=== PATIENT | female | born 1980 | race Caucasian/White ===

== ENCOUNTER 2017-05-29 08:57 | Emergency (ER) | payer OTHER ==
[2017-05-29 09:03] VITALS: TEMP 97.9
[2017-05-29] MEDS ORDERED: diphenhydrAMINE 50 MG CAP PO STA (09:12)
[2017-05-29] MEDS ORDERED: FAMOTIDINE 20 MG/2 ML VIAL IV STA (09:12)
[2017-05-29] MEDS ORDERED: methylPREDNISolone SOD SUCCI 125 MG/2 ML VIAL IV STA (09:12)
[2017-05-29] MEDS ORDERED: EPINEPHrine 1 MG/ML 1 ML AMP SQ ONE (09:13)
--- NOTE | 2017-05-29 10:00 | ED ---
Allergic Reaction HPI - General Chief complaint: Allergic Reaction Stated complaint: Allergic Reaction (macrobid) Time Seen by Provider: 05/29/17 09:05 Source: patient, RN notes reviewed, old records reviewed Mode of arrival: ambulatory Limitations: no limitations - History of Present Illness Initial Comments: 36-year-old female presents emergency Department chief complaint of ALLERGIC reaction. Patient was started on Macrobid for UTI and finished a course last week. She was seen at a hospital [facility] on vacation after she developed hives and shortness of breath. Patient on Sunday was started on prednisone and Benadryl and Pepcid. Patient reports that she woke up today and was having worsening hives. She had not had any Benadryl or medications since yesterday evening. Patient felt that she is feeling somewhat tight in her throat. Patient denies any specific shortness of breath. Patient states that this is the first time she's never had an ALLERGIC reaction such as this. - Related Data Home Medications Medication Instructions Recorded Confirmed ALPRAZolam [Xanax] 0.25 mg PO DAILY PRN 07/20/16 05/29/17 PARoxetine [Paxil] 20 mg PO DAILY 07/20/16 05/29/17 Etonogestrel/Ethinyl Estradiol 1 ring VG Q30D 05/29/17 05/29/17 [Nuvaring Vaginal Ring] Famotidine [Pepcid] 20 mg PO BID 05/29/17 05/29/17 Loratadine [Claritin] 10 mg PO DAILY 05/29/17 05/29/17 diphenhydrAMINE HCL [Benadryl] 25 mg PO HS PRN 05/29/17 05/29/17 predniSONE 50 mg PO DAILY 05/29/17 05/29/17 Previous Rx's Medication Instructions Recorded EPINEPHrine (Auto Inject) [Epipen] 0.3 mg IM ONCE PRN #1 syringe 05/29/17 Famotidine [Pepcid] 20 mg PO BID #8 tablet 05/29/17 diphenhydrAMINE [Benadryl] 25 mg PO QID PRN #25 capsule 05/29/17 predniSONE 50 mg PO DAILY #4 tablet 05/29/17 Allergies Allergy/AdvReac Type Severity Reaction Status Date / Time nitrofurantoin Allergy Rash/Hives Verified 05/29/17 09:56 [From Macrobid] Penicillins Allergy Unknown Verified 05/29/17 09:56 Childhood sulfamethoxazole Allergy Unknown Verified 05/29/17 09:56 [From Bactrim] trimethoprim [From Bactrim] Allergy Unknown Verified 05/29/17 09:56 Review of Systems ROS Statement: Those systems with pertinent positive or pertinent negative responses have been documented in the HPI. ROS Other: All systems not noted in ROS Statement are negative. Past Medical History Past Medical History: No Reported History Additional Past Medical History / Comment(s): migraines, anxiety depression History of Any Multi-Drug Resistant Organisms: None Reported Past Surgical History: No Surgical Hx Reported Past Psychological History: Anxiety, Depression Smoking Status: Never smoker Past Alcohol Use History: None Reported Past Drug Use History: None Reported General Exam - General Exam Comments Initial Comments: His is a 36-year-old female. Patient does not appear to be in any acute distress. Limitations: no limitations General appearance: alert, in no apparent distress Head exam: Present: atraumatic, normocephalic, normal inspection Eye exam: Present: normal appearance, PERRL, EOMI. Absent: scleral icterus, conjunctival injection, periorbital swelling ENT exam: Present: normal exam, mucous membranes moist Neck exam: Present: normal inspection. Absent: tenderness, meningismus, lymphadenopathy Respiratory exam: Present: normal lung sounds bilaterally. Absent: respiratory distress, wheezes, rales, rhonchi, stridor Cardiovascular Exam: Present: regular rate, normal rhythm, normal heart sounds. Absent: systolic murmur, diastolic murmur, rubs, gallop, clicks GI/Abdominal exam: Present: soft, normal bowel sounds. Absent: distended, tenderness, guarding, rebound, rigid Extremities exam: Present: normal inspection, full ROM, normal capillary refill. Absent: tenderness, pedal edema, joint swelling, calf tenderness Back exam: Present: normal inspection, full ROM Neurological exam: Present: alert, oriented X3, CN II-XII intact Psychiatric exam: Present: normal affect, normal mood Skin exam: Present: warm, dry, intact, normal color, urticaria ( is covered from her chest, abdomen and back with hives.). Absent: rash Course Vital Signs 05/29/17 09:00 Temperature 97.9 F Pulse Rate 59 L Respiratory 18 Rate Blood Pressure 136/78 O2 Sat by Pulse 96 Oximetry - Reevaluation(s) Reevaluation #1: 05/29/17 10:30 Patient was reevaluated and her hives have improved. She is feeling much better at this time. Discussed that she needs to take Benadryl every 4-6 hours. Patient has not been doing this. Medical Decision Making - Medical Decision Making Is a 28-year-old female chief complaint of ALLERGIC reaction to Macrobid. She was treated at a hospital [facility] on vacation on Sunday for similar symptoms. She was discharged with prednisone 50 mg, and Pepcid. Patient arrives today she hasn't taken her medication since last night with worsening hives. She states she felt tight in her throat. Patient was given IV site [place], Pepcid and Benadryl and 0.1 epinephrine subcu. Patient was reevaluated and is feeling somewhat better. Discussed that I will continue her prednisone, and Pepcid. Also informed patient she needs to be taking Benadryl every 4-6 hours. Discussed that she should never have Macrobid again that she will have a worsening reaction next time. Patient also will be discharged with a further prescription of prednisone for a longer course, and Pepcid. Patient understands treatment plan will comply. Return parameters were discussed. Disposition Clinical Impression: Allergic reaction, Adverse reaction to drug Disposition: HOME SELF-CARE Condition: Stable Instructions: Anaphylaxis (ED) Additional Instructions: Patient is follow-up with her primary care provider. Continue to take Benadryl every 4-6 hours as well as continue the prescription she or he has an at the new prescriptions afterwards. Patient should return to the emergency department if any alarming signs or symptoms occur. Prescriptions: diphenhydrAMINE [Benadryl] 25 mg PO QID PRN #25 capsule PRN Reason: Itching EPINEPHrine (Auto Inject) [Epipen] 0.3 mg IM ONCE PRN #1 syringe PRN Reason: Anaphylaxis Famotidine [Pepcid] 20 mg PO BID #8 tablet predniSONE 50 mg PO DAILY #4 tablet Referrals: López Mckay MD [Primary Care Provider] - 1-2 days Time of Disposition: 10:31
[2017-05-29 10:52] VITALS: BP 131/70; PULSE 84; RESP 16
== END 2017-05-29 10:51 | disposition home or self-care (01) ==
LOC: EC 08:57
DX: L50.9 Urticaria, unspecified (principal); T37.8X5A Adverse effect of other specified systemic anti-infectives and antiparasitics, initial encounter; F32.9 Major depressive disorder, single episode, unspecified; F41.9 Anxiety disorder, unspecified; Z79.3 Long term (current) use of hormonal contraceptives; Z79.52 Long term (current) use of systemic steroids; Z88.1 Allergy status to other antibiotic agents; Z88.0 Allergy status to penicillin; Z88.2 Allergy status to sulfonamides; Z79.899 Other long term (current) drug therapy
CPT/HCPCS: 99283; 96374; 96375; 96372; J0171; J2930

== ENCOUNTER → 2019-09-11 | Outpatient (CLI) | payer OTHER ==
--- NOTE | 2019-09-11 09:49 | MM ---
Reason for exam: screening (asymptomatic). Baseline mammogram. History: Took hormonal contraceptives beginning at age 15. Physical Findings: A clinical breast exam by your physician is recommended on an annual basis and results should be correlated with mammographic findings. MG Screening Mammo w CAD Bilateral CC and MLO view(s) were taken. The breast tissue is heterogeneously dense. This may lower the sensitivity of mammography. No suspicious abnormality. These results were verbally communicated with the patient and result sheet given to the patient on 09/11/19. ASSESSMENT: Negative, BI-RAD 1 RECOMMENDATION: Routine screening mammogram of both breasts in 1 year.
== END ==
LOC: RADMAMWWP 07:35
PROVIDERS: ATTEND Obstetrics & Gynecology
DX: Z12.31 Encounter for screening mammogram for malignant neoplasm of breast (principal)
CPT/HCPCS: 77067

== ENCOUNTER → 2020-11-15 | Outpatient (CLI) | payer BC ==
--- NOTE | 2020-11-16 11:15 | MM ---
Reason for exam: screening (asymptomatic). Last mammogram was performed 1 year and 2 months ago. History: Took hormonal contraceptives beginning at age 15. Physical Findings: A clinical breast exam by your physician is recommended on an annual basis and results should be correlated with mammographic findings. MG Screening Mammo w CAD Bilateral CC and MLO view(s) were taken. Prior study comparison: September 11, 2019, bilateral MG screening mammo w CAD. The breast tissue is heterogeneously dense. This may lower the sensitivity of mammography. There is no discrete abnormality. ASSESSMENT: Negative, BI-RAD 1 RECOMMENDATION: Routine screening mammogram of both breasts in 1 year.
== END | disposition home or self-care (01) ==
LOC: RADMAMWWP 07:44
PROVIDERS: ATTEND Obstetrics & Gynecology
DX: Z12.31 Encounter for screening mammogram for malignant neoplasm of breast (principal)
CPT/HCPCS: 77067

== ENCOUNTER → 2021-08-01 | Outpatient (CLI) | payer BC ==
--- NOTE | 2021-08-02 05:05 | CT ---
EXAMINATION TYPE: CT kidney stone wo con DATE OF EXAM: 08/01/2021 COMPARISON: 07/20/2016 HISTORY: 40-year-old female R31.6, Hematuria, abdominal pain. Hx renal stones TECHNIQUE: Contiguous axial scanning of the abdomen and pelvis without IV contrast. Coronal and sagit merline reconstructions performed. CT DLP: 290.10 mGycm Automated exposure control for dose reduction was used. FINDINGS: Heart normal size without pericardial effusion. Lung bases clear without pleural effusion. Liver is borderline enlarged at 17.5 cm. Suggestion of some focal fat along the anterior falciform ligament. However, a larger slightly hypodense lesion at the posterior right hepatic dome is noted measuring 4. 9 cm versus 3.5 cm, previously. A second lesion at the mid hepatic dome measures 2.8 cm and is not well seen previously. A third lesion within the caudate measures 2.1 cm estimated to measure 1.3 cm, previously. A fourth lesion at the inferior segment 6 right liver lobe measures 3.9 cm versus 3.8 cm, previously. Relative stability suggests a benign etiology for this lesion. Noncontrast appearance of the gallbladder, adrenal glands, spleen with a couple hilar splenules, and pancreas show no gross abnormality. There is a 5 mm calculus at the left UPJ with mild hydronephrosis. Additional 5 mm nonobstructive left lower pole renal calculus. No hydronephrosis on the right. No dilated small bowel, free fluid, or free air. No mesenteric or retroperitoneal lymphadenopathy. Normal appendix. Mild stool burden. No pericolonic inflammatory change. Bladder is collapsed. Platelets in the pelvis. Uterus is anteverted. Both ovaries are visualized. No abnormal fluid collection in the pelvis or pelvic lymphadenopathy. Bones: Moderate to advanced degenerative disc disease L5-S1 with a leftward disc osteophyte complex t hat appears to cause at least moderate left L5-S1 neuroforaminal stenosis. IMPRESSION: 1. A 5 MM LEFT UPJ CALCULUS WITH MILD OBSTRUCTIVE UROPATHY. 2. AN ADDITIONAL NONOBSTRUCTIVE 5 MM LEFT RENAL CALCULUS. 3. APPROXIMATELY 4 LIVER LESIONS MEASURING UP TO 4.9 CM WHICH WARRANT FURTHER EVALUATION. 3 of these APPEAR NEW OR LARGER. BENIGN ETIOLOGIES ARE INCLUDED IN THE DIFFERENTIAL SUCH HEMANGIOMAS, FNH, A ND FOCAL FAT. OTHER ETIOLOGY NOT EXCLUDED AT THIS TIME. LIVER MRI CAN PROVIDE MORE DETAILED CHARACTER IZATION.
== END | disposition home or self-care (01) ==
LOC: RADCTMAIN 15:51
PROVIDERS: ATTEND Family Medicine
DX: N13.9 Obstructive and reflux uropathy, unspecified (principal); N20.2 Calculus of kidney with calculus of ureter
CPT/HCPCS: 74176

== ENCOUNTER → 2021-09-09 | Outpatient (CLI) | payer BC ==
--- NOTE | 2021-09-11 04:26 | MR ---
EXAMINATION TYPE: MR liver wo/w con DATE OF EXAM: 09/09/2021 COMPARISON: CT scan 08/01/2021 HISTORY: Abnormal findings on CT, evaluate lesions. CONTRAST: Standard multiplanar, multisequence MRI departmental protocol images were obtained without contrast a nd with 7 mL intravenous Gadavist gadolinium contrast. On the T2 images there is lobulated 4 cm high signal lesion in the inferior right lobe of the liver. There is a similar 2.5 cm lesion anterior to the inferior vena cava and the caudate lobe of the liver . There is lobulated 5 cm there is high signal lesion in the posterior superior right lobe of the shannon er. These multiple liver masses show progressive enhancement on the delayed contrast images and consi stent with hemangiomas. Spleen is intact. There is no evidence of pancreatic mass. Pancreatic duct appears normal. The bile d ucts are not dilated. Gallbladder appears normal. There is left side hydronephrosis.. No evidence of a solid renal mass. The proximal left ureter is di lated. There is no ascites. There is no retroperitoneal adenopathy. There is no evidence of pleural effusion . IMPRESSION: There is multiple liver lesions which have signal pattern consistent with ordinary hemangiomas and no t changed in size compared to CT scan of 08/01/2021. Left-sided hydronephrosis and proximal hydroureter. This appears similar to old exam. There is likely a stone in the mid left ureter that has migrated from the proximal ureter compared to old exam.
== END | disposition home or self-care (01) ==
LOC: RADMRIMAIN 14:47
PROVIDERS: ATTEND Family Medicine
DX: R93.2 Abnormal findings on diagnostic imaging of liver and biliary tract (principal)
CPT/HCPCS: 74183; A9585

== ENCOUNTER → 2021-10-07 | Outpatient (CLI) | payer BC ==
--- NOTE | 2021-10-07 09:24 | XR ---
EXAMINATION TYPE: XR KUB DATE OF EXAM: 10/07/2021 HISTORY: Pain Comparison: 07/24/2016 Single KUB is submitted for interpretation. Findings: Right renal calculi: None Visualized. Obscured by overlying bowel content. Right ureteral calculi: None Visualized. Left renal calculi: 5.4 mm lower pole calculus. Mid and upper pole of the left kidney obscured by ov erlying bowel content. Left ureteral calculi: None Visualized. Pelvic calcifications: Pelvic calcifications noted. These likely reflect phleboliths however distal ureteral calculus is difficult to exclude. Bowel gas pattern is unremarkable. No free air. No mass effects. IMPRESSION: 1. As above
== END | disposition home or self-care (01) ==
LOC: RADXRMAIN 09:07
PROVIDERS: ATTEND Urology
DX: N20.1 Calculus of ureter (principal)
CPT/HCPCS: 74018

== ENCOUNTER → 2022-02-15 | Outpatient (CLI) | payer BC ==
--- NOTE | 2022-02-17 11:49 | MM ---
Reason for exam: screening (asymptomatic). Last mammogram was performed 1 year and 3 months ago. History: Took hormonal contraceptives beginning at age 15. Taking progesterone for 2 years. Physical Findings: A clinical breast exam by your physician is recommended on an annual basis and results should be correlated with mammographic findings. MG Screening Mammo w CAD Bilateral CC and MLO view(s) were taken. Prior study comparison: November 15, 2020, bilateral MG screening mammo w CAD. September 11, 2019, bilateral MG screening mammo w CAD. The breast tissue is heterogeneously dense. This may lower the sensitivity of mammography. No significant changes when compared with prior studies. ASSESSMENT: Benign, BI-RAD 2 RECOMMENDATION: Routine screening mammogram of both breasts in 1 year. Patient should continue monthly self breast exams. A negative report should not preclude additional follow up of suspicious palpable abnormalities.
== END | disposition home or self-care (01) ==
LOC: RADMAMWWP 16:30
PROVIDERS: ATTEND Family Medicine
DX: Z12.31 Encounter for screening mammogram for malignant neoplasm of breast (principal)
CPT/HCPCS: 77067

== ENCOUNTER → 2023-03-06 | Outpatient (CLI) | payer OTHER ==
--- NOTE | 2023-03-07 10:29 | MM ---
Reason for Exam: Screening (asymptomatic). Last screening mammogram was performed 12 month(s) ago. Patient History: Menarche at age 10. Currently using Progesterone, for 2 years. Hormonal Contraceptives, from age 15 until age 37. Risk Values: Lyubov 5 year model risk: 0.6%. NCI Lifetime model risk: 7.1%. Prior Study Comparison: 09/11/2019 Bilateral Screening Mammogram, [facility]. 11/15/2020 Bilateral Screening Mammogram, [facility]. 02/15/2022 Bilateral Screening Mammogram, [facility]. Tissue Density: The breast tissue is heterogeneously dense. This may lower the sensitivity of mammography. Findings: Analyzed By CAD. There is no suspicious group of microcalcifications or new suspicious mass in either breast. Overall Assessment: Negative, BI-RAD 1 Management: Screening Mammogram of both breasts in 1 year. . Patient should continue monthly self-breast exams. A clinical breast exam by your physician is recommended on an annual basis. This exam should not preclude additional follow-up of suspicious palpable abnormalities. Note on Lyubov scores and lifetime risk: 1. A Lyubov score greater than 3% is considered moderate risk. If this is the case, consider specialist referral to assess eligibility for a risk reducing agent. 2. If overall lifetime risk for the development of breast cancer is 20% or higher, the patient may qualify for future screening with alternating mammogram and breast MRI. Electronically signed and approved by: Michael Rueda M.D.
== END | disposition home or self-care (01) ==
LOC: RADMAMWWP 08:28
PROVIDERS: ATTEND Obstetrics & Gynecology
DX: Z12.31 Encounter for screening mammogram for malignant neoplasm of breast (principal)
CPT/HCPCS: 77067

== ENCOUNTER → 2023-05-24 | Outpatient (CLI) | payer OTHER ==
--- NOTE | 2023-05-25 08:15 | XR ---
EXAMINATION TYPE: XR KUB DATE OF EXAM: 05/24/2023 COMPARISON: 10/07/2021 HISTORY: Left kidney stone TECHNIQUE: One view abdominal series FINDINGS: The osseous structures are intact. The bowel gas pattern is nonspecific. Right kidney: Secured by bowel content with no obvious calcification. Left kidney: Stable mid to uppe r pole 6 mm calculus. Calcifications in the pelvis compatible with phleboliths stable. Bilateral hip arthropathy.. IMPRESSION: 1. Stable left-sided nephrolithiasis.
== END | disposition home or self-care (01) ==
LOC: RADXRWHC 16:11
PROVIDERS: ATTEND Urology
DX: N20.0 Calculus of kidney (principal)
CPT/HCPCS: 74018

== ENCOUNTER 2023-05-28 08:31 | Day surgery (SDC) | payer OTHER ==
[2023-05-25 08:47] VITALS: BMI 24.3
--- NOTE | 2023-05-28 07:04 | P.GSHP ---
History of Present Illness H&P Date: 05/28/23 Chief Complaint: Flank and abdominal pain The patient is a 42-year-old white female with a history of urolithiasis. She underwent ESWL in 2015. Her calculus fragmented well at that time. She now presents with abdominal and flank pain which is predominantly left-sided. CT scan and KUB x-rays show a 6 mm left lower pole renal calculus, with a measured density of 651 Hounsfield units. She was offered the options of observation, ureteroscopy with laser lithotripsy, and extracorporal shockwave lithotripsy (ESWL). She has chosen to undergo the latter and comes for this reason. - Constitutional Constitutional: Denies chills, Denies fever - Gastrointestinal Gastrointestinal: Reports abdominal pain, Reports nausea, Reports vomiting - Genitourinary (Female) Genitourinary: Reports flank pain, Reports kidney stones, Denies hematuria Past Medical History Past Medical History: No Reported History (6) Additional Past Medical History / Comment(s): past migraines, kidney stones, constipation/diarrhea History of Any Multi-Drug Resistant Organisms: None Reported Past Surgical History: No Surgical Hx Reported Additional Past Surgical History / Comment(s): lithotripsy 2016 Past Anesthesia/Blood Transfusion Reactions: No Reported Reaction, Motion Sickness Past Psychological History: Anxiety, Depression Smoking Status: Former smoker Past Alcohol Use History: Rare Additional Past Alcohol Use History / Comment(s): quit smoking april 2022, hx of 5 cigarettes/day. Past Drug Use History: None Reported - Past Family History Father Family Medical History: Cancer Additional Family Medical History / Comment(s): colon cancer with mets to liver Medications and Allergies Home Medications Medication Instructions Recorded Confirmed Type PARoxetine [Paxil] 20 mg PO DAILY 07/20/16 05/25/23 History Dicyclomine [Bentyl] 20 mg PO QID #15 tablet 05/22/23 05/25/23 Rx ALPRAZolam [Xanax] 0.5 mg PO DAILY PRN 05/25/23 05/25/23 History Citalopram Hydrobromide [CeleXA] 20 mg PO HS 05/25/23 05/25/23 History Ibuprofen [Motrin Ib] 400 mg PO Q8H PRN 05/25/23 05/25/23 History Progesterone, Micronized 200 mg PO DIRECTED 05/25/23 05/25/23 History [Progesterone] Allergies Allergy/AdvReac Type Severity Reaction Status Date / Time nitrofurantoin Allergy Rash/Hives Verified 05/25/23 08:33 [From Macrobid] Penicillins Allergy Unknown Verified 05/25/23 08:33 Childhood sulfamethoxazole Allergy Rash/Hives Verified 05/25/23 08:33 [From Bactrim] trimethoprim [From Bactrim] Allergy Rash/Hives Verified 05/25/23 08:33 Surgical - Exam - General well developed, well nourished, no distress - Respiratory normal respiratory effort - Abdomen Abdomen: soft, non tender, no guarding, no rigid, no rebound - Psychiatric oriented to time, oriented to person, oriented to place, speech is normal, memory intact Results - Imaging Abdominal x-ray: report reviewed, image reviewed CT scan - abdomen: report reviewed, image reviewed Assessment and Plan (1) Calculus of kidney Status: Acute Code(s): N20.0 - CALCULUS OF KIDNEY SNOMED Code(s): 21890958 Plan: I discussed with the patient the treatment of the calculus with ESWL. I explained the possible need for repeat ESWL or alternative treatment in the event of treatment failure or incomplete fragmentation. I discussed the risks of ESWL, including anesthesia, collateral damage to other organs, and Steinstrasse. The possible need for a secondary intervention such as a stent or ureteroscopy was discussed. The patient expressed an understanding of the procedure and risks including but not limited to hematuria secondary to renal contusion, perinephric hematoma, and injury to adjacent organs such as the spleen. The patient understands that due to the constraints of the lithotriptor schedule that it will be Dr. De La Cruz who will perform the procedure.
[~2023-05-28 08:31] MED LIST: DEXAMETHASONE SOD PHOSPHATE 4 MG/ML 1 ML VIAL IV ONE; HYDROmorphone 0.5 MG/0.5 ML SYRINGE IVP PRN; LACTATED RINGERS 1,000 ML IV SCH; LIDOCAINE 1% (10MG/ML) FOR IV START INTRADERMA PRN; MIDAZOLAM 2 MG/2 ML VIAL IV PRN; ONDANSETRON 4 MG/2 ML VIAL IVP ONE
[2023-05-28] MEDS ORDERED: SCOPOLAMINE 1 MG/72 HR PATCH TRANSDERM ONE (09:00)
[2023-05-28 09:15] VITALS: TEMP 97.8
[2023-05-28] MEDS ORDERED: KETAMINE 10 MG/ML 20 ML VIAL ONE (09:23)
[2023-05-28] MEDS ORDERED: PROPOFOL 10 MG/ML 20 ML VIAL IV ONE (09:23)
[2023-05-28] MEDS ORDERED: MIDAZOLAM 2 MG/2 ML VIAL ONE (09:23)
[2023-05-28] MEDS ORDERED: fentaNYL (PF) 50 MCG/ML 2 ML AMP ONE (09:23)
--- NOTE | 2023-05-28 09:59 | P.OP ---
Date of Procedure: 05/28/23 Preoperative Diagnosis: Renal stone Postoperative Diagnosis: same Procedure(s) Performed: Left ESWL Implants: none Anesthesia: MAC Surgeon: Ivan De La Cruz Pathology: none sent Condition: stable Disposition: PACU Indications for Procedure: The patient is a 42-year-old white female with a history of urolithiasis. She underwent ESWL in 2016. Her calculus fragmented well at that time. She now presents with abdominal and flank pain which is predominantly left-sided. CT scan and KUB x-rays show a 6 mm left lower pole renal calculus, with a measured density of 651 Hounsfield units. She was offered the options of observation, ureteroscopy with laser lithotripsy, and extracorporal shockwave lithotripsy (ESWL). She has chosen to undergo the latter and comes for this reason. Description of Procedure: The patient was taken to the operating room and placed on the Dornier Compact Delta II lithotripter in the supine position. left upper pole stone was seen on the biplanar fluoroscopy. Once the patient was properly positioned and sedat ed, lithotripsy was performed. The energy level was gradually increased per protocol, to an energy level of 4. A total of 2500 shocks were given at a rate of 80 shocks per minute. Fluoroscopy was utilized at a minimum to ensure proper positioning and determine the treatment status. There was excellent fragmentation of the stone The patient tolerated the procedure well was taken to the recovery room in stable condition. Instructions were given to strain the urine, and the patient will follow-up within one week.
[2023-05-28 10:10] VITALS: RESP 16
[2023-05-28 10:25] VITALS: BP 108/73; PULSE 54
== END 2023-05-28 11:20 | disposition home or self-care (01) ==
LOC: ORWHC2ENDO 08:31
PROVIDERS: ATTEND Urology
DX: N20.0 Calculus of kidney (principal); F41.9 Anxiety disorder, unspecified; F32.A Depression, unspecified; F10.90 Alcohol use, unspecified, uncomplicated; Z87.891 Personal history of nicotine dependence; Z79.899 Other long term (current) drug therapy; Z88.1 Allergy status to other antibiotic agents; Z88.0 Allergy status to penicillin; Z88.2 Allergy status to sulfonamides; Z87.442 Personal history of urinary calculi
CPT/HCPCS: 81025; 50590; J2250; J1100; J2405; J3010; J2704

== ENCOUNTER → 2023-06-06 | Outpatient (CLI) | payer OTHER ==
--- NOTE | 2023-06-06 12:32 | XR ---
EXAMINATION TYPE: XR KUB DATE OF EXAM: 06/06/2023 COMPARISON: 05/24/2023 HISTORY: Left renal stone TECHNIQUE: One view abdominal series FINDINGS: The osseous structures are intact. The bowel gas pattern is nonspecific. Left kidney: There remains a faint calcification overlying the lower pole the left kidney measuring a pproximately 4 to 5 mm. Right kidney: No suspicious calcifications In the pelvis there are multiple calcifications stable and likely related to phleboliths. IMPRESSION: 1. Stable 4 to 5 mm left renal calculus.
== END | disposition home or self-care (01) ==
LOC: RADXRMAIN 11:58
PROVIDERS: ATTEND Urology
DX: N20.0 Calculus of kidney (principal)
CPT/HCPCS: 74018

== ENCOUNTER → 2024-03-24 | Outpatient (CLI) | payer BC ==
--- NOTE | 2024-03-26 10:04 | MM ---
Reason for Exam: Screening (asymptomatic). Last mammogram was performed 1 year(s) and 1 month(s) ago. Patient History: Menarche at age 10. Patient has no children. Currently using Progesterone, for 2 years. Hormonal Contraceptives, from age 15 until age 37. Last menstrual period: 03/09/2024 Risk Values: Lyubov 5 year model risk: 0.9%. NCI Lifetime model risk: 10.6%. Prior Study Comparison: 11/15/2020 Bilateral Screening Mammogram, [facility]. 02/15/2022 Bilateral Screening Mammogram, [facility]. 03/06/2023 Bilateral MG screening mammo w CAD, [facility]. Tissue Density: The breasts are heterogeneously dense, which may obscure small masses. Findings: Analyzed By CAD. Focal asymmetric density lower inner right breast 4.5 cm from the nipple. Additional views are recommended. No suspicious calcifications seen within either breast. Overall Assessment: Incomplete: need additional imaging evaluation, BI-RAD 0 Management: Diagnostic Mammogram of the right breast. . Patient should continue monthly self-breast exams. A clinical breast exam by your physician is recommended on an annual basis. This exam should not preclude additional follow-up of suspicious palpable abnormalities. Note on Lyubov scores and lifetime risk: 1. A Lyubov score greater than 3% is considered moderate risk. If this is the case, consider specialist referral to assess eligibility for a risk reducing agent. 2. If overall lifetime risk for the development of breast cancer is 20% or higher, the patient may qualify for future screening with alternating mammogram and breast MRI. Electronically signed and approved by: Edi Dorantes M.D. Radiologis
== END | disposition home or self-care (01) ==
LOC: RADMAMWWP 15:53
PROVIDERS: ATTEND Obstetrics & Gynecology
DX: Z12.31 Encounter for screening mammogram for malignant neoplasm of breast (principal)
CPT/HCPCS: 77067

== ENCOUNTER → 2024-03-28 | Outpatient (CLI) | payer BC ==
--- NOTE | 2024-03-28 10:53 | MM ---
Reason for Exam: Additional evaluation requested from abnormal screening. Last screening mammogram was performed less than 1 month ago. Patient History: Menarche at age 10. Patient has no children. Currently using Progesterone, for 2 years. Hormonal Contraceptives, from age 15 until age 37. Risk Values: Lyubov 5 year model risk: 0.9%. NCI Lifetime model risk: 10.6%. Prior Study Comparison: 09/11/2019 Bilateral Screening Mammogram, [facility]. 11/15/2020 Bilateral Screening Mammogram, [facility]. 02/15/2022 Bilateral Screening Mammogram, [facility]. 03/06/2023 Bilateral MG screening mammo w CAD, [facility]. 03/24/2024 Bilateral MG screening mammo w CAD, [facility]. Tissue Density: Right: The breasts are extremely dense, which lowers the sensitivity of mammography. Findings: Analyzed By CAD. Pattern appears stable. Under compression no persistent suspicious focal asymmetry in the lower inner right breast is identified. Precautionary 6 month follow-up is recommended. No suspicious groups of microcalcifications, spiculated or lobular masses, architectural distortion or other secondary signs of malignancy are mammographically apparent. Overall Assessment: Probably benign, BI-RAD 3 Management: Diagnostic Mammogram of the right breast in 6 months. A negative mammogram report should not preclude additional follow up of suspicious palpable abnormalities. Patient should continue monthly self breast exam. A clinical breast exam by your physician is recommended on an annual basis and results should be correlated with mammographic findings. Note on Lyubov scores and lifetime risk: 1. A Lyubov score greater than 3% is considered moderate risk. If this is the case, consider specialist referral to assess eligibility for a risk reducing agent. 2. If overall lifetime risk for the development of breast cancer is 20% or higher, the patient may qualify for future screening with alternating mammogram and breast MRI. Electronically signed and approved by: Steven Jean Baptiste D.O. Radiologis
== END | disposition home or self-care (01) ==
LOC: RADMAMWWP 10:27
PROVIDERS: ATTEND Obstetrics & Gynecology
DX: R92.341 Mammographic extreme density, right breast (principal); R92.8 Other abnormal and inconclusive findings on diagnostic imaging of breast
CPT/HCPCS: 77061; 77065

== ENCOUNTER 2024-05-16 10:00 | Day surgery (SDC) | payer BC ==
[~2024-05-16 10:00] MED LIST changes: -DEXAMETHASONE SOD PHOSPHATE 4 MG/ML 1 ML VIAL IV ONE; -HYDROmorphone 0.5 MG/0.5 ML SYRINGE IVP PRN; +LACTATED RINGERS 1,000 ML BAG ONE; -LACTATED RINGERS 1,000 ML IV SCH; -LIDOCAINE 1% (10MG/ML) FOR IV START INTRADERMA PRN; -MIDAZOLAM 2 MG/2 ML VIAL IV PRN; -ONDANSETRON 4 MG/2 ML VIAL IVP ONE
[2024-05-16] MEDS ORDERED: GLYCOPYRROLATE 0.2 MG/ML 2 ML VIAL ONE (10:02)
[2024-05-16] MEDS ORDERED: PROPOFOL 10 MG/ML 20 ML VIAL IV ONE (10:02)
[2024-05-16] MEDS ORDERED: LIDOCAINE 1% INJ 10MG/ML (20 ML MDV) ONE (10:02)
--- NOTE | 2024-06-06 17:15 | P.PCN ---
Date of Procedure: 05/16/24 Procedure(s) Performed: This an addendum to the procedure was performed on 05/16/2024. Procedure performed colonoscopy Procedure: Scope was advanced into the cecum. Careful examination was performed. Colonoscopy was within normal limits. Small internal hemorrhoids seen.
== END 2024-05-16 11:10 ==
LOC: ORWHC2ENDO 10:00
PROVIDERS: ATTEND Internal Medicine Gastroenterology
DX: Z12.11 Encounter for screening for malignant neoplasm of colon (principal); K64.8 Other hemorrhoids; Z80.0 Family history of malignant neoplasm of digestive organs; Z88.0 Allergy status to penicillin; Z88.1 Allergy status to other antibiotic agents; Z88.8 Allergy status to other drugs, medicaments and biological substances
CPT/HCPCS: 45378; 81025

== ENCOUNTER 2024-07-16 04:09 | Emergency (ER) | payer BC ==
--- NOTE | 2024-07-16 04:16 | ED ---
General Adult HPI - General Stated complaint: Chest Pain Time Seen by Provider: 07/16/24 04:14 Source: patient Mode of arrival: EMS Limitations: no limitations - History of Present Illness Initial comments: Dictation was produced using [employer] dictation software. please excuse any gr ammatical, word or spelling errors. Chief Complaint: 43-year-old female presents to the emergency department after episode of diaphoresis nausea and vomiting History of Present Illness: Patient is a 43-year-old female no significant comorbidities states that [facility] She took 2 Excedrin. 15 to 20 minutes later she noticed that her whole body was red. She then proceeded to have nonbilious nonbloody emesis. Patient was distraught about how she felt she called EMS and was brought to the emergency department. EMS was concerned and performed an EKG. According to EMS they were concerned of inferior elevations. Point had any chest pain or shortness of breath or shoulder pain or abdominal pain Patient denies any symptoms at this time. The ROS documented in this emergency department record has been reviewed and confirmed by me. Those systems with pertinent positive or negative responses have been documented in the HPI. All other systems are other negative and/or noncontributory. - Related Data Home Medications Medication Instructions Recorded Confirmed PARoxetine [Paxil] 20 mg PO DAILY 07/20/16 05/25/23 ALPRAZolam [Xanax] 0.5 mg PO DAILY PRN 05/25/23 05/25/23 Citalopram Hydrobromide [CeleXA] 20 mg PO HS 05/25/23 05/25/23 Ibuprofen [Motrin Ib] 400 mg PO Q8H PRN 05/25/23 05/25/23 Progesterone, Micronized 200 mg PO DIRECTED 05/25/23 05/25/23 [Progesterone] Previous Rx's Medication Instructions Recorded Dicyclomine [Bentyl] 20 mg PO QID #15 tablet 05/22/23 HYDROcodone/APAP 5-325MG [[place] 1 tab PO Q6HR PRN 3 Days #12 tab 05/28/23 5-325] Tamsulosin [Flomax] 0.4 mg PO DAILY #14 cap 05/28/23 Allergies Allergy/AdvReac Type Severity Reaction Status Date / Time nitrofurantoin Allergy Rash/Hives Verified 08/18/23 08:33 [From Macrobid] Penicillins Allergy Unknown Verified 05/25/23 08:33 Childhood sulfamethoxazole Allergy Rash/Hives Verified 05/25/23 08:33 [From Bactrim] trimethoprim [From Bactrim] Allergy Rash/Hives Verified 05/25/23 08:33 Review of Systems ROS Statement: Those systems with pertinent positive or pertinent negative responses have been documented in the HPI. ROS Other: All systems not noted in ROS Statement are negative. Past Medical History Past Medical History: No Reported History Additional Past Medical History / Comment(s): past migraines, kidney stones, constipation/diarrhea History of Any Multi-Drug Resistant Organisms: None Reported Past Surgical History: No Surgical Hx Reported Additional Past Surgical History / Comment(s): lithotripsy 2016 Past Anesthesia/Blood Transfusion Reactions: No Reported Reaction, Motion Sickness Smoking Status: Former smoker Past Alcohol Use History: Rare - Past Family History Father Family Medical History: Cancer Additional Family Medical History / Comment(s): colon cancer with mets to liver General Exam - General Exam Comments Initial Comments: PHYSICAL EXAM: General Impression: Alert and oriented x3, not in acute distress HEENT: Normocephalic atraumatic, extra-ocular movements intact, pupils equal and reactive to light bilaterally, mucous membranes moist. Cardiovascular: Heart regular rate and rhythm Chest: Able to complete full sentences, no retractions, no tachypnea Abdomen: abdomen soft, non-tender, non-distended, no organomegaly Musculoskeletal: Pulses present and equal in all extremities, no peripheral edema Motor: no focal deficits noted Neurological: CN II-XII grossly intact, no focal motor or sensory deficits noted Skin: Intact with no visualized rashes Psych: Normal affect and mood Limitations: no limitations Course Vital Signs 07/16/24 04:11 Temperature 98.3 F Pulse Rate 69 Respiratory 18 Rate Blood Pressure 155/91 O2 Sat by Pulse 100 Oximetry EKG Findings - EKG Comments: EKG Findings:: My EKG interpretation: Ventricular rate 66, sinus rhythm,. 143, QRS 86, QTc 4 7. No MT prolongation, no QTC prolongation, no ST or T-wave changes noted. Some J-point elevation. Overall, this EKG is unremarkable Medical Decision Making - Medical Decision Making Was pt. sent in by a medical professional or institution (, PA, LOCK PLATER, urgent care, hospital, or jail...) When possible be specific @ -No Did you speak to anyone other than the patient for history (EMS, parent, family, police, friend...)? What history was obtained from this source @ -No Did you review nursing and triage notes (agree or disagree)? Why? @ -I reviewed and agree with nursing and triage notes Were old charts reviewed (outside hosp., previous admission, EMS record, old EKG, old radiological studies, urgent care reports/EKG's, jail records)? Report findings @ -No old charts were reviewed Differential Diagnosis (chest pain, altered mental status, abdominal pain women, abdominal pain men, vaginal bleeding, musculoskeletal, weakness, fever, dyspnea, syncope, headache, dizziness, GI bleed, back pain, seizure, CVA, palpatations, mental health)? @ -Hypoglycemia, carcinoid syndrome, gastroenteritis EKG interpreted by me (3pts min.). @ -See above X-rays interpreted by me (1pt min.). @ -None done CT interpreted by me (1pt min.). @ -None done U/S interpreted by me (1pt. min.). @ -None done What testing was considered but not performed or refused? (CT, X-rays, U/S, labs)? Why? @ -None What meds were considered but not given or refused? Why? @ -None Was smoking cessation discussed for >3mins.? @ -No Were there social determinants of health that impacted care today? How? (Homelessness, low income, unemployed, alcoholism, drug addiction, transportation, low edu. Level, literacy, decrease access to med. care, halfway, rehab)? @ -No Was there de-escalation of care discussed even if they declined (Discuss DNR or withdrawal of care, Hospice)? DNR status @ -No What co-morbidities impacted this encounter? (DM, HTN, Smoking, COPD, CAD, Cancer, CVA, ARF, Chemo, Hep., AIDS, mental health diagnosis, sleep apnea, morbid obesity)? @ -None Was patient admitted / discharged? Hospital course, mention meds given and route , prescriptions, significant lab abnormalities, going to OR and other pertinent info. @ -43-year-old female presents to the emergency department for episode of erythroderma along with nausea vomiting diaphoresis. Vital signs stable. Patient had no symptoms of chest pain or ACS equivalent. No shortness of breath. She states she is symptom-free at the bedside upon arrival. Vital signs stable. Patient has no significant comorbidities. Laboratory evaluation obtained. Reevaluated at 5:01 AM found to be stable to condition denies any symptoms. Patient feels well. Patient discharged advised follow-up with primary care doctor. Did you discuss the management of the patient with other professionals (professionals i.e. , PA, LOCK PLATER, lab, RT, psych nurse, social welfare clerk, mercerizing range feeder, teacher, contracting officer, caser)? Give summary @ -No Was critical care preformed (if so, how long)? @ -No Undiagnosed new problem with uncertain prognosis? @ -No Drug Therapy requiring intensive monitoring for toxicity (Heparin, Nitro, Insulin, Cardizem)? @ -No Were any procedures done? @ -No Diagnosis/symptom? Acute, or Chronic, or Acute on Chronic? Uncomplicated (without systemic symptoms) or Complicated (systemic symptoms)? @ -nausea vomiting Side effects of treatment? @ -No Exacerbation, Progression, or Severe Exacerbation? @ -No Poses a threat to life or bodily function? How? (Chest pain, [place], [place], pneumonia, PE, COPD, DKA, ARF, appy, cholecystitis, CVA, Diverticulitis, Homicidal, Daniella cidal, threat to staff... and all critical care pts) @ -No - Lab Data Result diagrams: 07/16/24 04:19 07/16/24 04:19 Lab Results 07/16/24 07/16/24 Range/Units 04:19 04:19 WBC 9.1 (3.8-10.6) k/uL RBC 4.85 (3.80-5.40) m/uL Hgb 14.5 (11.4-16.0) gm/dL Hct 45.6 (34.0-46.0) % MCV 94.1 (80.0-100.0) fL MCH 29.9 (25.0-35.0) pg MCHC 31.8 (31.0-37.0) g/dL RDW 12.9 (11.5-15.5) % Plt Count 239 (150-450) k/uL MPV 7.0 Neutrophils % 61 % Lymphocytes % 30 % Monocytes % 5 % Eosinophils % 2 % Basophils % 1 % Neutrophils # 5.5 (1.3-7.7) k/uL Lymphocytes # 2.7 (1.0-4.8) k/uL Monocytes # 0.5 (0-1.0) k/uL Eosinophils # 0.2 (0-0.7) k/uL Basophils # 0.1 (0-0.2) k/uL Sodium 138 (137-145) mmol/L Potassium 3.4 L (3.5-5.1) mmol/L Chloride 112 H (98-107) mmol/L Carbon Dioxide 21 L (22-30) mmol/L Anion Gap 5 mmol/L BUN 11 (7-17) mg/dL Creatinine 0.71 (0.52-1.04) mg/dL Est GFR (CKD-EPI)AfAm >90 (>60 ml/min/1.73 sqM) Est GFR (CKD-EPI)NonAf >90 (>60 ml/min/1.73 sqM) Glucose 92 (74-99) mg/dL Calcium 8.6 (8.4-10.2) mg/dL Disposition Clinical Impression: Nausea & vomiting Disposition: HOME SELF-CARE Condition: Good Instructions (If sedation given, give patient instructions): Acute Nausea and Vomiting (ED) Is patient prescribed a controlled substance at d/c from ED?: No Referrals: None,Stated [REFERRING] - 1-2 days Time of Disposition: 05:02
[2024-07-16] MEDS: SODIUM CHLORIDE 0.9% 1,000 ML IV STA (04:18)
[2024-07-16 04:27] LABS: Basophils # (A) 0.1 k/uL (0-0.2); Basophils % (A) 1 %; Eosinophils # (A) 0.2 k/uL (0-0.7); Eosinophils % (A) 2 %; HCT 45.6 % (34.0-46.0); HGB 14.5 gm/dL (11.4-16.0); Lymphocytes # (A) 2.7 k/uL (1.0-4.8); Lymphocytes % (A) 30 %; MCH 29.9 pg (25.0-35.0); MCHC 31.8 g/dL (31.0-37.0); MCV 94.1 fL (80.0-100.0); Monocytes # (A) 0.5 k/uL (0-1.0); Monocytes % (A) 5 %; Neutrophils # (A) 5.5 k/uL (1.3-7.7); Neutrophils % (A) 61 %; Platelet Count 239 k/uL (150-450); RBC 4.85 m/uL (3.80-5.40); RDW 12.9 % (11.5-15.5); WBC 9.1 k/uL (3.8-10.6)
[2024-07-16 04:46] LABS: African American GFR (CKD) >90 (>60 ml/min/1.73 sqM); Anion Gap 5 mmol/L; Blood Urea Nitrogen 11 mg/dL (7-17); Calcium 8.6 mg/dL (8.4-10.2); Carbon Dioxide 21 mmol/L (22-30); Chloride 112 mmol/L (98-107); Glucose 92 mg/dL (74-99); Non-African American GFR(CKD) >90 (>60 ml/min/1.73 sqM); Potassium 3.4 mmol/L (3.5-5.1); Sodium 138 mmol/L (137-145)
[2024-07-16 05:12] VITALS: BP 146/91; PULSE 56; RESP 15; TEMP 97.8
== END 2024-07-16 05:09 | disposition home or self-care (01) ==
LOC: EC 04:09
CPT/HCPCS: 36415; 80048; 85025; 93005; 96360; 99285

== ENCOUNTER 2025-03-19 08:57 | Emergency (ER) | payer BC ==
--- NOTE | 2025-03-19 09:32 | ED ---
Abdominal Pain HPI - General Chief Complaint: Abdominal Pain Stated Complaint: abd pain Time Seen by Provider: 03/19/25 09:07 Source: patient, RN notes reviewed Mode of arrival: ambulatory Limitations: no limitations - History of Present Illness Initial Comments: This is a 44-year-old female who presents to the emergency department for flank pain. States that it started on 03/08. Pain radiates into the abdomen and she has associated nausea. Also reports urinary urgency and frequency. She does have a history of kidney stones, some of which required a lithotripsy and states that it feels similar. Denies any changes in bowel habits. Denies any fev ers/chills. States that the pain is usually on one side when she has kidney stones, however it is currently on both sides. She was also told at one point that she may have IBS. However, states that her bowel movements have been regularly and she is trying to eat healthier. MD Complaint: abdominal pain - Related Data Home Medications Medication Instructions Recorded Confirmed PARoxetine [Paxil] 20 mg PO DAILY 07/20/16 05/25/23 ALPRAZolam [Xanax] 0.5 mg PO DAILY PRN 05/25/23 05/25/23 Citalopram Hydrobromide [CeleXA] 20 mg PO HS 05/25/23 05/25/23 Ibuprofen [Motrin Ib] 400 mg PO Q8H PRN 05/25/23 05/25/23 Progesterone, Micronized 200 mg PO DIRECTED 05/25/23 05/25/23 [Progesterone] Previous Rx's Medication Instructions Recorded Dicyclomine [Bentyl] 20 mg PO QID #15 tablet 05/22/23 HYDROcodone/APAP 5-325MG [[place] 1 tab PO Q6HR PRN 3 Days #12 tab 05/28/23 5-325] Tamsulosin [Flomax] 0.4 mg PO DAILY #14 cap 05/28/23 Celecoxib 200 mg PO BID PRN #20 cap 03/19/25 Dicyclomine [Bentyl] 20 mg PO QID PRN #20 tablet 03/19/25 Metoclopramide [Reglan] 10 mg PO Q6H PRN #20 tab 03/19/25 Ondansetron Odt [Zofran Odt] 4 mg PO Q8HR PRN #15 tab 03/19/25 Allergies Allergy/AdvReac Type Severity Reaction Status Date / Time nitrofurantoin Allergy Rash/Hives Verified 03/19/25 09:03 [From Macrobid] Penicillins Allergy Unknown Verified 03/19/25 09:03 Childhood sulfamethoxazole Allergy Rash/Hives Verified 03/19/25 09:03 [From Bactrim] trimethoprim [From Bactrim] Allergy Rash/Hives Verified 03/19/25 09:03 Review of Systems ROS Statement: Those systems with pertinent positive or pertinent negative responses have been documented in the HPI. ROS Other: All systems not noted in ROS Statement are negative. Past Medical History Past Medical History: No Reported History Additional Past Medical History / Comment(s): past migraines, kidney stones, constipation/diarrhea History of Any Multi-Drug Resistant Organisms: None Reported Past Surgical History: No Surgical Hx Reported Additional Past Surgical History / Comment(s): lithotripsy 2016 Past Anesthesia/Blood Transfusion Reactions: No Reported Reaction, Motion Sickness Past Psychological History: Anxiety, Depression Smoking Status: Former smoker Past Alcohol Use History: None Reported Past Drug Use History: None Reported - Past Family History Father Family Medical History: Cancer Additional Family Medical History / Comment(s): colon cancer with mets to liver General Exam Limitations: no limitations General appearance: alert, in no apparent distress Head exam: Present: atraumatic, normocephalic, normal inspection Respiratory exam: Present: normal lung sounds bilaterally. Absent: respiratory distress, wheezes, rales, rhonchi, stridor Cardiovascular Exam: Present: regular rate, normal rhythm GI/Abdominal exam: Present: soft, tenderness (Lower abdomen). Absent: distended Back exam: Present: CVA tenderness (R), CVA tenderness (L) Neurological exam: Present: alert, oriented X3, CN II-XII intact Psychiatric exam: Present: normal affect, normal mood Skin exam: Present: warm, dry, intact, normal color. Absent: rash Course Vital Signs 03/19/25 03/19/25 03/19/25 08:59 10:33 12:30 Temperature 97.9 F Pulse Rate 97 79 70 Respiratory 18 18 16 Rate Blood Pressure 108/73 107/62 126/91 O2 Sat by Pulse 99 98 100 Oximetry 03/19/25 14:54 Temperature 98.2 F Pulse Rate 65 Respiratory 16 Rate Blood Pressure 112/85 O2 Sat by Pulse 100 Oximetry Medical Decision Making - Medical Decision Making This is a 44-year-old female who presents to the emergency department for flank pain. Was pt. sent in by a medical professional or institution? @ -No Did you speak to anyone other than the patient for history? @ -No Did you review nursing and triage notes? @ -Yes, and I agree, it is accurate with regards to the patient's symptoms. Were old charts reviewed? @ -No Differential Diagnosis? @ -Differential Flank Pain: UTI, pyelonephritis, kidney stone, musculoskeletal, pancreatitis, cholecystitis, this is not meant to be an all-inclusive list. EKG interpreted by me (3pts min.)? @ -Not obtained X-rays interpreted by me (1pt min.)? @ -Not obtained CT interpreted by me (1pt min.)? @ -CT scan of the abdomen and pelvis obtained. My interpretation identifies no bowel wall thickening or free air. U/S interpreted by me (1pt. min.)? @ -Transvaginal ultrasound obtained. My interpretation identifies no evidence of an ovarian torsion. What testing was considered but not performed? (CT, X-rays, U/S, labs)? Why? @ -None What meds were considered but not given? Why? @ -None Did you discuss the management of the patient with other professionals? @ -No Did you reconcile home meds? @ -No Was smoking cessation discussed for >3mins.? @ -No Was critical care preformed (if so, how long)? @ -No Were there social determinants of health that impacted care today? How? (Homelessness, low income, unemployed, alcoholism, drug addiction, transportation, low edu. Level, literacy, decrease access to med. care, snf, rehab)? @ -No Was there de-escalation of care discussed even if they declined? (Discuss DNR or withdrawal of care, Hospice)? @ -No What co-morbidities impacted this encounter? (DM, HTN, Smoking, COPD, CAD, Cancer, CVA, Hep., AIDS, mental health diagnosis, sleep apnea, morbid obesity)? @ -Kidney stones Was patient admitted / discharged? @ -Discharged. Lab work unremarkable. Urinalysis negative for signs of infection. CT scan of the abdomen and pelvis reveals no acute process. She does have stable lesions on the liver consistent with hemangiomas that have been seen on multiple rounds of prior imaging. She was also found to have a large amount of gas in the rectum. Findings reviewed with the patient. The cause of her symptoms at this point is not entirely clear. It could be related to the gas that was noted. We did also obtain a pelvic ultrasound and no acute process was identified on that either. Advised that symptoms could be related to something like IBS or other issue with her bowels. Case management made the patient an appointment with GI to follow-up on 03/31 for further evaluation of her symptoms. Zofran, Reglan, Bentyl, and Celebrex prescribed as well for additional management of any pain and nausea. Patient discharged home in stable condition. Case discussed with ED attending Dr. Rai. Return precautions reviewed in depth, the patient is instructed to return to the emergency department with any new, worsening, or concerning symptoms. Patient verbalized understanding. Undiagnosed new problem with uncertain prognosis? @ -None Drug Therapy requiring intensive monitoring for toxicity (Heparin, Nitro, Insulin, Cardizem)? @ -None Were any procedures done? @ -None Diagnosis/symptom? @ -Abdominal pain, back pain, nausea Acute, or Chronic, or Acute on Chronic? @ -Acute Uncomplicated (without systemic symptoms) or Complicated (systemic symptoms)? @ -Uncomplicated Side effects of treatment? @ -None Exacerbation, Progression, or Severe Exacerbation] @ -Not applicable Poses a threat to life or bodily function? @ -No - Lab Data Result diagrams: 03/19/25 09:21 03/19/25 09:21 Lab Results 03/19/25 03/19/25 03/19/25 Range/Units 09:21 09:21 09:21 WBC 7.12 (4.50-10.00) 10*3/uL RBC 4.30 (4.10-5.20) 10*6/uL Hgb 13.2 (12.0-15.0) g/dL Hct 38.5 (37.2-46.3) % MCV 89.5 (80.0-97.0) fL MCH 30.7 (27.0-32.0) pg MCHC 34.3 (32.0-37.0) g/dL Plt Count 269 (140-440) 10*3/uL MPV 8.9 L (9.5-12.2) fL Immature Gran % (Auto) 0.1 % Neutrophils % 60.6 % Lymphocytes % 29.5 % Monocytes % 7.0 % Eosinophils % 2.1 % Basophils % 0.7 % Immature Gran # 0.01 (0.00-0.04) 10*3/uL Neutrophils # 4.31 (1.80-7.70) 10*3/uL Lymphocytes # 2.10 (0.90-5.00) 10*3/uL Monocytes # 0.50 (0.20-1.00) 10*3/uL Eosinophils # 0.15 (0.04-0.35) 10*3/uL Basophils # 0.05 (0.00-0.10) 10*3/uL Sodium 138 (137-145) mmol/L Potassium 4.1 (3.5-5.1) mmol/L Chloride 107 (98-107) mmol/L Carbon Dioxide 22 (22-30) mmol/L Anion Gap 9 mmol/L BUN 13 (7-17) mg/dL Creatinine 0.74 (0.52-1.04) mg/dL Est GFR (CKD-EPI)AfAm >90 (>60 ml/min/1.73 sqM) Est GFR (CKD-EPI)NonAf >90 (>60 ml/min/1.73 sqM) Glucose 117 H (74-99) mg/dL Plasma Lactic Acid Emir 1.5 (0.7-2.0) mmol/L Calcium 9.3 (8.4-10.2) mg/dL Total Bilirubin 0.7 (0.2-1.3) mg/dL AST 20 (14-36) U/L ALT 15 (4-34) U/L Alkaline Phosphatase 63 (38-126) U/L Total Protein 6.4 (6.3-8.2) g/dL Albumin 4.2 (3.5-5.0) g/dL Lipase 280 (23-300) U/L HCG, Qual Not Detected Urine Color Urine Appearance (Clear) Urine pH (5.0-8.0) Ur Specific [place] (1.001-1.035) Urine Protein (Negative) Urine Glucose (UA) (Negative) Urine Ketones (Negative) Urine Blood (Negative) Urine Nitrite (Negative) Urine Bilirubin (Negative) Urine Urobilinogen (<2.0) mg/dL Ur Leukocyte Esterase (Negative) 03/19/25 Range/Units 10:09 WBC (4.50-10.00) 10*3/uL RBC (4.10-5.20) 10*6/uL Hgb (12.0-15.0) g/dL Hct (37.2-46.3) % MCV (80.0-97.0) fL MCH (27.0-32.0) pg MCHC (32.0-37.0) g/dL Plt Count (140-440) 10*3/uL MPV (9.5-12.2) fL Immature Gran % (Auto) % Neutrophils % % Lymphocytes % % Monocytes % % Eosinophils % % Basophils % % Immature Gran # (0.00-0.04) 10*3/uL Neutrophils # (1.80-7.70) 10*3/uL Lymphocytes # (0.90-5.00) 10*3/uL Monocytes # (0.20-1.00) 10*3/uL Eosinophils # (0.04-0.35) 10*3/uL Basophils # (0.00-0.10) 10*3/uL Sodium (137-145) mmol/L Potassium (3.5-5.1) mmol/L Chloride (98-107) mmol/L Carbon Dioxide (22-30) mmol/L Anion Gap mmol/L BUN (7-17) mg/dL Creatinine (0.52-1.04) mg/dL Est GFR (CKD-EPI)AfAm (>60 ml/min/1.73 sqM) Est GFR (CKD-EPI)NonAf (>60 ml/min/1.73 sqM) Glucose (74-99) mg/dL Plasma Lactic Acid Emir (0.7-2.0) mmol/L Calcium (8.4-10.2) mg/dL Total Bilirubin (0.2-1.3) mg/dL AST (14-36) U/L ALT (4-34) U/L Alkaline Phosphatase (38-126) U/L Total Protein (6.3-8.2) g/dL Albumin (3.5-5.0) g/dL Lipase (23-300) U/L HCG, Qual Urine Color Colorless Urine Appearance Clear (Clear) Urine pH 6.0 (5.0-8.0) Ur Specific [place] 1.004 (1.001-1.035) Urine Protein Negative (Negative) Urine Glucose (UA) Negative (Negative) Urine Ketones Negative (Negative) Urine Blood Negative (Negative) Urine Nitrite Negative (Negative) Urine Bilirubin Negative (Negative) Urine Urobilinogen <2.0 (<2.0) mg/dL Ur Leukocyte Esterase Negative (Negative) - Radiology Data Radiology results: report reviewed, image reviewed Disposition Clinical Impression: Abdominal pain, Back pain, Nausea Disposition: HOME SELF-CARE Instructions (If sedation given, give patient instructions): Abdominal Pain (ED) Additional Instructions: Return to the emergency department with any new, worsening, or concerning symptoms. Take the Celebrex twice daily for pain control. Take the Bentyl up to every 6 hours to help with abdominal cramping and discomfort. You can take the Reglan every 6 hours for nausea and vomiting and the Zofran up to every 8 hours as needed for nausea and vomiting. Follow up with your primary care provider in 1-2 days. An appointment was made for you with the barrel polisher on 03/31 at 2 PM. Prescriptions: Dicyclomine [Bentyl] 20 mg PO QID PRN #20 tablet PRN Reason: Gi Upset Celecoxib 200 mg PO BID PRN #20 cap PRN Reason: Pain Metoclopramide [Reglan] 10 mg PO Q6H PRN #20 tab PRN Reason: Nausea And Vomiting Ondansetron Odt [Zofran Odt] 4 mg PO Q8HR PRN #15 tab PRN Reason: Nausea And Vomiting Is patient prescribed a controlled substance at d/c from ED?: No Referrals: Win Bunn MD [Primary Care Provider] - 1-2 days Millie Yañez MD [STAFF PHYSICIAN] - 03/31/25 2:00 pm (Please bring insurance an d ID cards. You will have new patient information to complete. ) Time of Disposition: 14:02
[2025-03-19 09:40] LABS: Basophils # (A) 0.05 10*3/uL (0.00-0.10); Basophils % (A) 0.7 %; Eosinophils # (A) 0.15 10*3/uL (0.04-0.35); Eosinophils % (A) 2.1 %; HCT 38.5 % (37.2-46.3); HGB 13.2 g/dL (12.0-15.0); Lymphocytes % (A) 29.5 %; MCH 30.7 pg (27.0-32.0); MCHC 34.3 g/dL (32.0-37.0); MCV 89.5 fL (80.0-97.0); Mean Platelet Volume 8.9 fL (9.5-12.2); Neutrophils # (A) 4.31 10*3/uL (1.80-7.70); Neutrophils % (A) 60.6 %; Platelet Count 269 10*3/uL (140-440); RDW 12.6 % (11.5-14.5); WBC 7.12 10*3/uL (4.50-10.00)
[2025-03-19] MEDS: SODIUM CHLORIDE 0.9% 1,000 ML IV ONE (09:46)
[2025-03-19] MEDS: KETOROLAC 15 MG/ML 1 ML VIAL IVP STA (09:47)
[2025-03-19] MEDS: ONDANSETRON 4 MG/2 ML VIAL IVP STA ×2 (09:48→12:35)
[2025-03-19 10:04] LABS: HCG,Qualitative Serum Not Detected
[2025-03-19 10:05] LABS: ALT 15 U/L (4-34); AST 20 U/L (14-36); African American GFR (CKD) >90 (>60 ml/min/1.73 sqM); Albumin 4.2 g/dL (3.5-5.0); Alkaline Phosphatase 63 U/L (38-126); Anion Gap 9 mmol/L; Blood Urea Nitrogen 13 mg/dL (7-17); Calcium 9.3 mg/dL (8.4-10.2); Carbon Dioxide 22 mmol/L (22-30); Chloride 107 mmol/L (98-107); Glucose 117 mg/dL (74-99); Lipase 280 U/L (23-300); Non-African American GFR(CKD) >90 (>60 ml/min/1.73 sqM); Potassium 4.1 mmol/L (3.5-5.1); Sodium 138 mmol/L (137-145); Total Bilirubin 0.7 mg/dL (0.2-1.3); Total Protein 6.4 g/dL (6.3-8.2)
[2025-03-19 10:41] LABS: Appearance,Urine Clear (Clear); Bilirubin,Urine Negative (Negative); Blood,Urine Negative (Negative); Color,Urine Colorless; Glucose,Urine (UA) Negative (Negative); Ketones,Urine Negative (Negative); Leukocyte Esterase,Urine Negative (Negative); Nitrite,Urine Negative (Negative); Protein,Urine Negative (Negative); Specific Gravity,Urine 1.004 (1.001-1.035); Urobilinogen,Urine <2.0 mg/dL (<2.0)
--- NOTE | 2025-03-19 10:52 | CT ---
EXAMINATION TYPE: CT abdomen pelvis wo con DATE OF EXAM: 03/19/2025 10:29 AM COMPARISON: 05/22/2023 CLINICAL INDICATION: Female, 44 years old with history of Flank pain; Flank pain TECHNIQUE: Axial CT abdomen pelvis wo con;Sagittal and coronal reformats were created on a separate workstation. Contrast used: mL of , (none if empty) Oral contrast used: without Oral Contrast (none if empty) CT DLP: 395.7 mGycm, Automated exposure control for dose reduction was used. FINDINGS: LOWER CHEST: Unremarkable ABDOMEN LIVER: Indeterminate masses in the right hepatic lobe posteriorly measuring 5.6 x 4.2 cm more inferio rly measuring 3.8 cm GALLBLADDER AND BILE DUCTS: Unremarkable. PANCREAS: Unremarkable. SPLEEN: Unremarkable. ADRENAL GLANDS: Unremarkable. KIDNEYS AND URETERS: No evidence of hydronephrosis or obstructing renal calculus. The ureters are unr emarkable. PELVIS BLADDER: No evidence for wall thickening or mass given limitations of exam. REPRODUCTIVE: Unremarkable. ABDOMEN & PELVIS STOMACH AND BOWEL: No evidence of bowel obstruction. Large amount of gas is seen in the rectum. The a ppendix is normal. PERITONEUM/RETROPERITONEUM: No evidence of pneumoperitoneum or free fluid. VASCULATURE: No evidence of aortic aneurysm. MUSCULOSKELETAL: No acute osseous abnormalities. Mild disc degeneration changes are present throughou t the thoracolumbar spine. LYMPH NODES: No gross evidence for lymphadenopathy. SOFT TISSUE/ABDOMINAL WALL: Unremarkable IMPRESSION: 1. No evidence for obstructive uropathy. 2. Indeterminate masses are seen within the liver, these are seen on multiple prior's suggesting aissatou ign process however liver mass protocol MRI recommended for complete evaluation if not already perfor med. 3. Normal appendix. [facility], , 03/19/2025 10:49 AM
[2025-03-19] MEDS: MORPHINE SULFATE 4 MG/ML SYRINGE IVP STA (11:22)
[2025-03-19] MEDS: DICYCLOMINE 10 MG/ML 2 ML AMP IM STA (11:27)
[2025-03-19 12:31] VITALS: RESP 16
[2025-03-19] MEDS: METOCLOPRAMIDE 5 MG/ML 2 ML VIAL IVP STA (12:37)
[2025-03-19] MEDS: HYDROmorphone 0.5 MG/0.5 ML SYRINGE IVP STA (12:40)
--- NOTE | 2025-03-19 13:50 | US ---
EXAMINATION TYPE: US transvaginal DATE OF EXAM: 03/19/2025 COMPARISON: CT 03/19/2025 CLINICAL INDICATION: Female, 44 years old with history of Pelvic pain; Abdominal pain, Hx renal stone s TECHNIQUE: Transvaginal (TV). Transvaginal sonographic images were ordered Doppler imaging: Color Doppler Images were obtained. Spectral doppler images were obtained. FINDINGS: Date of LMP: 03/07/2025 EXAM MEASUREMENTS: Uterus: 7.7 x 3.2 x 3.8 cm Endometrial Stripe: 0.7 cm Right Ovary: 2.5 x 2.2 x 1.6 cm Left Ovary: 2.8 x 1.7 x 2.7 cm 1. Uterus: Anteverted wnl 2. Endometrium: wnl 3. Right Ovary: wnl 4. Left Ovary: wnl Spectral, color and waveform doppler imaging shows good arterial and venous flow within the ovaries ; there is no evidence for ovarian torsion. 5. Bilateral Adnexa: wnl 6. Posterior cul-de-sac: wnl IMPRESSION: 1. Unremarkable pelvic ultrasound O-RADS 2021 [email or web address] [facility], , 03/19/2025 1:47 PM
[2025-03-19] MEDS: ACET/COD 300 MG/30 MG STARTER PACK 6 TAB BTL PO STA (14:49)
[2025-03-19] MEDS: ONDANSETRON 4 MG ODT STARTER PACK 2 TAB BTL PO STA (14:49)
[2025-03-19 15:09] VITALS: BP 112/85; PULSE 65; TEMP 98.2
== END 2025-03-19 15:09 | disposition home or self-care (01) ==
LOC: EC 08:57
DX: R10.32 Left lower quadrant pain (principal); R10.31 Right lower quadrant pain; M54.9 Dorsalgia, unspecified; R11.0 Nausea; N20.0 Calculus of kidney; Z88.0 Allergy status to penicillin; Z88.2 Allergy status to sulfonamides; Z88.1 Allergy status to other antibiotic agents; Z87.891 Personal history of nicotine dependence
CPT/HCPCS: 99284; 96374; 96375 ×4; 96361 ×3; 96372; 36415; 80053; 83605; 83690; 85025; 81003; 84703; 76830; 74176; 96376; J2270; J0500; J2765; J2405; J1885; S0119; J1171

== ENCOUNTER → 2025-03-25 | Outpatient (CLI) | payer BC ==
--- NOTE | 2025-03-25 09:23 | MM ---
Reason for Exam: Screening (asymptomatic). Last screening mammogram was performed 12 month(s) ago. Patient History: Menarche at age 10. Patient has no children. Currently using Progesterone, for 2 years. Hormonal Contraceptives, from age 15 until age 37. Risk Values: Lyubov 5 year model risk: 0.9%. NCI Lifetime model risk: 10.5%. Prior Study Comparison: 03/06/2023 Bilateral MG screening mammo w CAD, [facility]. 03/24/2024 Bilateral MG screening mammo w CAD, [facility]. 03/28/2024 Right MG 3D work up w/cad RT, [facility] WITH [facility]. Tissue Density: The breasts are heterogeneously dense, which may obscure small masses. Findings: Analyzed By CAD. Enlarging 2.2 cm circumscribed mass upper outer quadrant left breast middle depth for which further ultrasound evaluation is recommended. This may represent a benign cyst. Otherwise, there is no suspicious group of microcalcifications or new suspicious mass in either breast. Overall Assessment: Incomplete: need additional imaging evaluation, BI-RAD 0 Management: Diagnostic Breast Ultrasound of the left breast. Upper outer quadrant for possible underlying enlarging cyst currently measuring 2.[address] [facility] will attempt to contact patient to return for ultrasound. [facility], , 03/25/2025 9:20 AM. Electronically signed and approved by: Deshawn Bill M.D. Radiologist
== END | disposition home or self-care (01) ==
LOC: RADMAMWWP 08:35
PROVIDERS: ATTEND Obstetrics & Gynecology
DX: Z12.31 Encounter for screening mammogram for malignant neoplasm of breast (principal); R92.333 Mammographic heterogeneous density, bilateral breasts; Z92.0 Personal history of contraception
CPT/HCPCS: 77063; 77067

== ENCOUNTER → 2025-04-01 | Outpatient (CLI) | payer BC ==
--- NOTE | 2025-04-01 13:27 | USB ---
Reason for Exam: Additional evaluation requested from abnormal screening. Patient History: Menarche at age 10. Patient has no children. Currently using Progesterone, for 2 years. Hormonal Contraceptives, from age 15 until age 37. Risk Values: Lyubov 5 year model risk: 0.9%. NCI Lifetime model risk: 10.5%. Technique: Method: Targeted. Prior Study Comparison: 03/24/2024 Bilateral MG screening mammo w CAD, [facility]. 03/28/2024 Right MG 3D work up w/cad RT, [facility]. 03/25/2025 Bilateral MG 3D screening mammo w/cad, [facility]. Findings: The upper outer quadrant of the left breast, the axilla of the left breast and the retroareolar of the left breast were scanned. Technique utilized:US breast workup limited LT Image; Ultrasound imaging of: All 4 quadrants, the retroareolar region and axilla. Left breast 2:00 4 cm from the nipple measuring 2.1 x 0.9 x 2.0 cm There is posterior acoustic enhancement. No evidence for mass. Overall Assessment: Benign, BI-RAD 2 Management: Screening Mammogram of both breasts in 1 year. A clinical breast exam by your physician is recommended on an annual basis and results should be correlated with mammographic findings. This exam should not preclude additional follow-up of suspicious palpable abnormalities. Results were given to the patient verbally at the time of exam. [facility], , 04/01/2025 1:23 PM. Electronically signed and approved by: Lalo Aguiar DO
== END | disposition home or self-care (01) ==
LOC: RADUSWWP 12:49
PROVIDERS: ATTEND Obstetrics & Gynecology
DX: R92.8 Other abnormal and inconclusive findings on diagnostic imaging of breast (principal); Z92.0 Personal history of contraception